=== PATIENT | male | born 1970 | race African-American/Black ===

== ENCOUNTER 2021-03-30 19:34 | Emergency (ER) | payer OTHER ==
[~2021-03-30] VITALS: Ht 180.3 cm; Wt 98.4 kg
[2021-03-30 19:44] VITALS: BP 160/103
[2021-03-30] MEDS ORDERED: NORVASC10 MG PO (19:49)
== END 2021-03-30 21:12 | disposition left against medical advice (07) ==
LOC: M.ERS 19:34
DX: R05 Cough (principal); R50.9 Fever, unspecified; Z53.21 Procedure and treatment not carried out due to patient leaving prior to being seen by health care provider

== ENCOUNTER 2021-08-03 11:54 | Emergency (ER) | payer OTHER ==
[~2021-08-03] VITALS: Ht 182.9 cm; Wt 101.6 kg
--- NOTE | ~2021-08-03 | PROC ---
[facility] [address] [place] [address] PROCEDURE REPORT Name: ARIELLA CRAMER [id number] Admission: 08/03/21 Attend Phys: Discharge: 08/03/21 Date of : 68 Report #: [id number] THIS REPORT FOR: cc: Mirella Villanueva MD, Ami MD YVETTE,Medical Records Staff ~ For GI report, please see the Provation report in Perceptive 7 content. By: [id number] Records Staff IZABELA /PELON
[~2021-08-03 11:54] MED LIST: NORVASC10 MG PO
[2021-08-03] MEDS ORDERED: NEURONTIN 300M300 M2 PO (12:06)
[2021-08-03 12:56] LABS: ABSOLUTE EOSINOPHILS 0.1 thou/uL (0.0-0.7); ABSOLUTE LYMPHOCYTES 1.7 thou/uL (0.8-5.3); ABSOLUTE MONOCYTES 0.5 thou/uL (0.0-1.2); ABSOLUTE NEUTROPHILS 2.9 thou/uL (1.6-8.1); BASOPHILS 0.4 %; EOSINOPHILS 1.6 %; HEMATOCRIT 42.2 % (42.0-52.0); HEMOGLOBIN 13.9 gm/dL (14.0-18.0); LYMPHOCYTES 33.2 %; MCH 30.9 pg (26.0-34.0); MCHC 32.8 g/dL (28.0-37.0); MCV 94.2 fL (80.0-100.0); MONOCYTES 9.3 %; MPV 8.9 fl. (7.2-11.1); NUCLEATED RBCS 0 /100WBC; PLATELET COUNT* 238 thou/uL (150-400); POLYS 55.5 %; RBC 4.48 mil/uL (4.50-6.00); RDW-CV 13.7 % (10.5-14.5); WBC 5.2 thou/uL (4.0-11.0)
[2021-08-03 13:04] LABS: CALCIUM 8.6 mg/dL (8.5-10.1); CREATININE 1.2 mg/dL (0.6-1.3); POTASSIUM 3.8 mmol/L (3.5-5.1)
[2021-08-03 13:09] LABS: ALBUMIN 3.7 g/dL (3.4-5.0); TOTAL BILIRUBIN 0.5 mg/dL (<0.1-1.0); TOTAL PROTEIN 6.9 g/dL (6.4-8.2)
[2021-08-03 14:48] LABS: URINE BILIRUBIN NEGATIVE (Negative); URINE BLOOD NEGATIVE (Negative); URINE CLARITY CLEAR; URINE COLOR YELLOW; URINE GLUCOSE-RANDOM NEGATIVE (Negative); URINE KETONES NEGATIVE (Negative); URINE LEUKOCYTES-REFLEX NEGATIVE (Negative); URINE NITRITE-REFLEX NEGATIVE (Negative); URINE PROTEIN NEGATIVE (Negative); URINE SPECIFIC GRAVITY 1.025 (1.005-1.030); URINE UROBILINOGEN 0.2 E.U./dl (0.2-1.0)
[2021-08-03 17:30] VITALS: BP 139/79
--- NOTE | 2021-08-04 15:17 | EKG ---
[place] [address] ELECTROCARDIOGRAM REPORT Name: ARIELLA CRAMER Room: [facility]#: [id number] Admission: 08/03/21 Attend Phys: Discharge: 08/03/21 Date of : 68 Date of Service: 08/03/21 1214 Report #: [id number] THIS REPORT FOR: //name// [facility] ED Test Date: 2021-08-03 Test Time: 12:14:43 Pat Name: ARIELLA CRAMER Department: Room: Gender: Painter [place]: : 1970 Requested By: Keyur Ignacio Order Number: [id number] MD: Nuno Bernal Measurements Intervals [place] Rate: 86 P: 56 [place]: 171 QRS: 7 QRSD: 79 T: 5 QT: 293 QTc: 351 Interpretive Statements Sinus rhythm Possible left atrial enlargement Early repolarization Nonspecific T abnormalities, lateral leads No previous ECG available for comparison Electronically Signed On 08-04-2021 15:17:21 [employer]ER [employer] OPERATOR by Nuno Bernal [email or web address] <ELECTRONICALLY SIGNED> By: Nuno Bernal MD, [facility] 08/04/21 1517 1214 121 Nuno Bernal MD, [facility] /EPI
== END 2021-08-03 17:30 | disposition admitted as inpatient to this hospital (09) ==
LOC: M.ERS 11:54 → M.GI 11:54 → M.ERS 17:30
PROVIDERS: Family Medicine
DX: K92.2 Gastrointestinal hemorrhage, unspecified (principal); Z20.822 Contact with and (suspected) exposure to COVID-19; D64.9 Anemia, unspecified; I10 Essential (primary) hypertension; F17.210 Nicotine dependence, cigarettes, uncomplicated; Z79.899 Other long term (current) drug therapy